=== PATIENT | female | born 1960 | race Caucasian/White ===

== ENCOUNTER 2021-11-03 16:52 | Emergency (ER) | payer OTHER ==
[~2021-11-03] VITALS: Ht 157.5 cm; Wt 72.1 kg
[2021-11-03 17:18] VITALS: BP 170/71
[2021-11-03] MEDS ORDERED: BENZ100C6 PO (18:09)
[2021-11-03] MEDS ORDERED: AZIT250T4 PO (18:09)
--- NOTE | 2021-11-03 19:03 | NUR ---
No nursing care provided.
[2021-11-03 19:10] VITALS: BP 152/72
--- NOTE | 2021-11-03 19:10 | NUR ---
Covid-19 swabs collected and sent to lab.
--- NOTE | 2021-11-03 19:10 | NUR ---
Patient discharged with v/s stable. Written and verbal after care instructions given and explained for Pneumonia. Patient alert, oriented and verbalized understanding of instructions. Ambulatory with steady gait. All questions addressed prior to discharge. ID band removed. Patient advised to follow up with PMD. Rx of Azithromycin and Benzonatate given. Patient educated on indication of medication including possible reaction and side effects. Opportunity to ask questions provided and answered.
== END 2021-11-03 19:10 | disposition home or self-care (01) ==
LOC: MED 16:52
DX: R05.9 Cough, unspecified (principal); Z20.822 Contact with and (suspected) exposure to COVID-19; E78.5 Hyperlipidemia, unspecified; Z86.39 Personal history of other endocrine, nutritional and metabolic disease; Z79.899 Other long term (current) drug therapy; Z79.2 Long term (current) use of antibiotics
CPT/HCPCS: 71045; 99284

== ENCOUNTER 2022-05-11 15:43 | Emergency (ER) | payer OTHER ==
[~2022-05-11] VITALS: Ht 154.9 cm; Wt 72.1 kg
[~2022-05-11 15:43] MED LIST: AZIT250T4 PO; BENZ100C6 PO
[2022-05-11 15:59] VITALS: BP 158/84
--- NOTE | 2022-05-11 16:04 | NUR ---
SWABS COLLECTED AND WALKED TO LAB.
[2022-05-11] MEDS ORDERED: BENZ-300 PO (16:46)
[2022-05-11] MEDS ORDERED: BPM/118S31 PO (16:46)
--- NOTE | 2022-05-11 17:01 | NUR ---
Patient discharged with v/s stable. Written and verbal after care instructions ABOUT COUGH given and explained. Patient alert, oriented and verbalized understanding of instructions. Ambulatory with steady gait. All questions addressed prior to discharge. ID band removed. Patient advised to follow up with PMD. Rx of CEPACOL SORE THROAT LOZENGE AND BROMFED DM COUGH given. Patient educated on indication of medication including possible reaction and side effects. Opportunity to ask questions provided and answered.
== END 2022-05-11 17:01 | disposition home or self-care (01) ==
LOC: MED 15:43
DX: J06.9 Acute upper respiratory infection, unspecified (principal); Z20.822 Contact with and (suspected) exposure to COVID-19; E03.9 Hypothyroidism, unspecified; E78.5 Hyperlipidemia, unspecified; Z79.899 Other long term (current) drug therapy; Z79.2 Long term (current) use of antibiotics
CPT/HCPCS: 71045; 99284

== ENCOUNTER 2023-03-29 08:33 | Emergency (ER) | payer OTHER ==
[~2023-03-29] VITALS: Ht 165.1 cm; Wt 72.6 kg
[~2023-03-29 08:33] MED LIST changes: +BENZ-300 PO; +BROM118S70 PO
[2023-03-29 09:05] VITALS: BP 138/71; PULSE 90; RESP 18; TEMP 98; O2SAT 98
[2023-03-29 10:34] LABS: FLU A ANTIGEN negative (NEGATIVE); FLU B ANTIGEN NEGATIVE (NEGATIVE)
[2023-03-29] MEDS ORDERED: AMOX500C25 PO (11:28)
[2023-03-29] MEDS ORDERED: BENZ200C4 PO (11:28)
[2023-03-29] MEDS ORDERED: ACET-10509 PO (11:28)
[2023-03-29 11:39] VITALS: BP 126/71; PULSE 88; RESP 18; TEMP 98; O2SAT 98
== END 2023-03-29 11:41 | disposition home or self-care (01) ==
LOC: MED 08:33
DX: J18.9 Pneumonia, unspecified organism (principal); Z20.822 Contact with and (suspected) exposure to COVID-19; E03.9 Hypothyroidism, unspecified; E78.00 Pure hypercholesterolemia, unspecified; R19.7 Diarrhea, unspecified; Z79.899 Other long term (current) drug therapy; Z79.2 Long term (current) use of antibiotics
CPT/HCPCS: 71045; 99284